=== PATIENT | male | born 1960 | race Caucasian/White ===

== ENCOUNTER 2017-09-08 10:30 | Emergency (ER) | payer BC, OTHER ==
[2017-09-08] MEDS ORDERED: Iopamidol 755 Mg/ML 75 ML Bottle IV ONE (12:55)
--- NOTE | 2017-09-08 15:14 | EDM.PDOC ---
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 felt shaky and dizzy and lightheaded several hours arriving at work which is unusual for him, he went to see company nurse and his BP and HR were inc'd per pt altho he could not tell me how high pt has a tremor of his L hand for several weeks which got worse today, however it did not interfere with his work BP 188/107 on arrival here with HR 82, BP gradually dec'd to 144/84 without meds , pt only slightly pain on arrival pt with visible gross tremor of his L hand and forearm that resolved with intentional action, subsequently resolved, no focal neuro findings there is ptosis on the L that is old on head CT radiologist Dr Oscar identified 3 areas of small infarcts: R internal capsule, L frontal parietal and L parasagittal. Dr Oscar thought that they might be evolving but had no comparison imaging local hospitalist Dr Oliveira requested that I speak with neurologist, Dr Moore reviewed head CT and said that he could not identify chronicity but pt dizziness was not vascular in the absence of vertigo, or ataxia, diplopia or dysphagia--none of which were present chest CTA for inc'd d-dimer was neg pt's father requested pt be transferred to [place] rather than be admitted locally for further stroke w/u d/w Dr Shepard [facility] hospitalist who accepted pt in admission pt resting comfortably now BP 188/107 on arrival, now 144/83 with no meds given - Related Data Allergies Allergy/AdvReac Type Severity Reaction Status Date / Time No Known Allergies Allergy Verified 01/18/13 04:02 Home Meds: Home Meds Celecoxib [CeleBREX] 200 mg PO DAILY 09/08/17 [History] metFORMIN [Glucophage] 500 mg PO BIDMEALS 09/08/17 [History] Past Medical History - Past Health History Medical/Surgical History: Denies Medical/Surgical History HEENT History: Reports: Other (See Below) Other HEENT History: lazy eye L eye Genitourinary History: Reports: None Musculoskeletal History: Reports: Arthritis, Fracture Other Musculoskeletal History: L foot fx Endocrine/Metabolic History: Reports: Diabetes, Type II, Obesity/BMI 30+ - Infectious Disease History Infectious Disease History: Reports: Chicken Pox - Past Surgical History Male Surgical History: Reports: Other (See Below) Other Male Surgeries/Procedures: 'surgery on penis' Musculoskeletal Surgical History: Reports: ORIF Other Musculoskeletal Surgeries/Procedures:: L foot surgery Social & Family History - Family History Family Medical History: Noncontributory - Tobacco Use Smoking Status *Q: Current Every Day Smoker Years of Tobacco use: 40 Packs/Tins Daily: 1 - Caffeine Use Caffeine Use: Reports: Soda - Recreational Drug Use Recreational Drug Use: No ED ROS GENERAL - Review of Systems Review Of Systems: See Below Constitutional: Reports: No Symptoms HEENT: Reports: No Symptoms Respiratory: Reports: No Symptoms Cardiovascular: Reports: No Symptoms Endocrine: Reports: No Symptoms GI/Abdominal: Reports: No Symptoms : Reports: No Symptoms Musculoskeletal: Reports: No Symptoms Skin: Reports: No Symptoms Neurological: Reports: Dizziness, Tremors. Denies: Headache, Syncope, Difficulty Walking, Weakness, Change in Speech, Gait Disturbance Psychiatric: Reports: No Symptoms Hematologic/Lymphatic: Reports: No Symptoms Immunologic: Reports: No Symptoms ED EXAM, NEURO - Physical Exam Exam: See Below Exam Limited By: Other (limited hx, pt poor historian, cognitively challenged) General Appearance: Alert, WD/WN, No Apparent Distress, Other (pleasant, cooperativew) Eye Exam: Bilateral Eye: Normal Inspection, PERRL, Other (ptosis on L) Ears: Normal External Exam, Hearing Grossly Normal Nose: Normal Inspection, Normal Mucosa, No Blood Throat/Mouth: Normal Inspection, Normal Lips, Normal Teeth, Normal Gums, Normal Oropharynx, Normal Voice, No Airway Compromise Head Exam: Atraumatic, Normocephalic Neck: Normal Inspection, Supple, Non-Tender, Full Range of Motion Respiratory/Chest: No Respiratory Distress, Lungs Clear, Normal Breath Sounds, No Accessory Muscle Use, Chest Non-Tender Cardiovascular: Regular Rate, Rhythm, No Edema, No Gallop, No Murmur, No Rub, Other (2/6 MALI at LSB) GI/Abdominal: Normal Bowel Sounds, Soft, Non-Tender, No Distention, No Mass Neurological: Alert, Normal Mood/Affect, Normal Dorsiflexion, CN II-XII Intact, Normal Gait, Normal Reflexes, No Motor/Sensory Deficits, Oriented x 3, Other ( DTRs 2+ at biceps and BR b/l, hand blue split trimmer 5/5, resting tremor at L hand/forearm) Back Exam: Normal Inspection, Full Range of Motion, NT Extremities: Normal Inspection, Normal Range of Motion, Non-Tender, Other (1+ edema to knees b/l, symmetric) Psychiatric: Normal Affect, Normal Mood Skin Exam: Warm, Dry, Intact, Normal Color, No Rash Course - Vital Signs Last Recorded V/S: Last Vital Signs Temp 36.4 C 09/08/17 10:30 Pulse 84 09/08/17 10:30 Resp 20 09/08/17 10:30 BP 165/100 H 09/08/17 10:30 Pulse Ox 94 L 09/08/17 10:30 Orthostatic Blood Pressure [ 170/111 Standing] Orthostatic Blood Pressure [ 152/100 Sitting] Orthostatic Blood Pressure [ 150/85 Supine] - Orders/Labs/Meds Orders: Active Orders 24 hr Category Date Time Status Orthostatic Vital Signs [RC] ASDIRECTED Care 09/08/17 10:59 Active Chest 2V [CR] Stat Exams 09/08/17 10:59 Taken Chest w Cont [CT] Stat Exams 09/08/17 12:06 Taken Head wo Cont [CT] Stat Exams 09/08/17 12:24 Taken URINALYSIS W/MICROSCOPIC [UA W/MICROSCOPIC] [URIN] Stat Lab 09/08/17 11:30 Ordered EKG 12 Lead [EK] Routine Ther 09/08/17 10:48 Ordered Labs: Laboratory Tests 09/08/17 09/08/17 09/08/17 Range/Units 10:39 10:41 10:41 WBC 8.9 (4.5-12.0) X10-3/uL RBC 5.12 (4.30-5.75) x10(6)uL Hgb 16.4 H (11.5-15.5) g/dL Hct 50.1 (30.0-51.3) % MCV 97.9 H (80-96) fL MCH 32.0 (27.7-33.6) pg MCHC 32.7 (32.2-35.4) g/dL RDW 12.6 (11.5-15.5) % Plt Count 128 (125-369) X10(3)uL MPV 9.7 (7.4-10.4) fL Neut % (Auto) 79.3 (46-82) % Lymph % (Auto) 12.1 L (13-37) % Menard % (Auto) 6.2 (4-12) % Eos % (Auto) 1 (1.0-5.0) % Baso % (Auto) 1 (0-2) % Neut # (Auto) 7.0 (1.6-8.3) # Lymph # (Auto) 1.1 (0.6-5.0) # Menard # (Auto) 0.6 (0.0-1.3) # Eos # (Auto) 0.1 (0.0-0.8) # Baso # (Auto) 0.1 (0.0-0.2) # D-Dimer, Quantitative 0.84 H (0.0-0.59) mg/LFEU Sodium (135-145) mmol/L Potassium (3.5-5.3) mmol/L Chloride (100-110) mmol/L Carbon Dioxide (21-32) mmol/L BUN (7-18) mg/dL Creatinine (0.70-1.30) mg/dL Est Cr Clr Drug Dosing Estimated GFR (MDRD) (>60) BUN/Creatinine Ratio (9-20) Glucose (80-116) mg/dL POC Glucose 138 H (80-116) mg/dL Calcium (8.6-10.2) mg/dL Total Bilirubin (0.1-1.3) mg/dL AST (5-25) IU/L ALT (12-36) U/L Alkaline Phosphatase (56-112) IU/L Troponin I (<0.017-0.056) ng/mL C-Reactive Protein (0.5-0.9) mg/dL NT-Pro-B Natriuret Pep (<=125) pg/mL Total Protein (6.0-8.0) g/dL Albumin (3.5-5.2) g/dL Globulin g/dL Albumin/Globulin Ratio Urine Color (YELLOW) Urine Appearance (CLEAR) Urine pH (5.0-6.5) Ur Specific [place] (1.010-1.025) Urine Protein (NEGATIVE) mg/dL Urine Glucose (UA) (NEGATIVE) mg/dL Urine Ketones (NEGATIVE) mg/dL Urine Occult Blood (NEGATIVE) Urine Nitrite (NEGATIVE) Urine Bilirubin (NEGATIVE) Urine Urobilinogen (NEGATIVE) mg/dL Ur Leukocyte Esterase (NEGATIVE) Urine RBC (0) Urine WBC (0) Ur Squamous Epith Cells (NS,R,O) Urine Bacteria (NS) 09/08/17 09/08/17 09/08/17 Range/Units 10:41 10:41 11:30 WBC (4.5-12.0) X10-3/uL RBC (4.30-5.75) x10(6)uL Hgb (11.5-15.5) g/dL Hct (30.0-51.3) % MCV (80-96) fL MCH (27.7-33.6) pg MCHC (32.2-35.4) g/dL RDW (11.5-15.5) % Plt Count (125-369) X10(3)uL MPV (7.4-10.4) fL Neut % (Auto) (46-82) % Lymph % (Auto) (13-37) % Menard % (Auto) (4-12) % Eos % (Auto) (1.0-5.0) % Baso % (Auto) (0-2) % Neut # (Auto) (1.6-8.3) # Lymph # (Auto) (0.6-5.0) # Menard # (Auto) (0.0-1.3) # Eos # (Auto) (0.0-0.8) # Baso # (Auto) (0.0-0.2) # D-Dimer, Quantitative (0.0-0.59) mg/LFEU Sodium 139 (135-145) mmol/L Potassium 3.9 (3.5-5.3) mmol/L Chloride 104 (100-110) mmol/L Carbon Dioxide 24 (21-32) mmol/L BUN 18 (7-18) mg/dL Creatinine 0.8 (0.70-1.30) mg/dL Est Cr Clr Drug Dosing TNP Estimated GFR (MDRD) > 60 (>60) BUN/Creatinine Ratio 22.5 H (9-20) Glucose 159 H (80-116) mg/dL POC Glucose (80-116) mg/dL Calcium 8.6 (8.6-10.2) mg/dL Total Bilirubin 0.4 (0.1-1.3) mg/dL AST 15 (5-25) IU/L ALT 31 (12-36) U/L Alkaline Phosphatase 70 (56-112) IU/L Troponin I < 0.017 L (<0.017-0.056) ng/mL C-Reactive Protein < 0.2 L (0.5-0.9) mg/dL NT-Pro-B Natriuret Pep 44 (<=125) pg/mL Total Protein 7.0 (6.0-8.0) g/dL Albumin 4.1 (3.5-5.2) g/dL Globulin 2.9 g/dL Albumin/Globulin Ratio 1.4 Urine Color Yellow (YELLOW) Urine Appearance Clear (CLEAR) Urine pH 5.0 (5.0-6.5) Ur Specific [place] 1.020 (1.010-1.025) Urine Protein Negative (NEGATIVE) mg/dL Urine Glucose (UA) 250 H (NEGATIVE) mg/dL Urine Ketones Negative (NEGATIVE) mg/dL Urine Occult Blood Large H (NEGATIVE) Urine Nitrite Negative (NEGATIVE) Urine Bilirubin Negative (NEGATIVE) Urine Urobilinogen Normal (NEGATIVE) mg/dL Ur Leukocyte Esterase Negative (NEGATIVE) Urine RBC 0-5 (0) Urine WBC 5-10 (0) Ur Squamous Epith Cells Moderate H (NS,R,O) Urine Bacteria Few H (NS) Meds: Medications Discontinued Medications Generic Name Dose Route Start Last Admin Trade Name Freq PRN Reason Stop Dose Admin Iopamidol 75 ml 09/08/17 12:55 09/08/17 13:19 Isovue-370 (76%) IV 09/08/17 12:56 75 ml ASDIRECTED ONE Administration Departure - Departure Time of Disposition: 16:32 Disposition: DC/Tfer to Acute Hospital 02 Condition: Good Clinical Impression: Dizziness, Elevated blood pressure reading, Resting tremor, Current smoker, Diabetes mellitus, Elevated d-dimer, CVA (cerebral vascular accident), Abnormal head CT, Dependent edema - Discharge Information - My Orders Last 24 Hours: My Active Orders 09/08/17 10:48 EKG 12 Lead [EK] Routine 09/08/17 10:59 Orthostatic Vital Signs [RC] ASDIRECTED Chest 2V [CR] Stat 09/08/17 11:30 URINALYSIS W/MICROSCOPIC [UA W/MICROSCOPIC] [URIN] Stat 09/08/17 12:06 Chest w Cont [CT] Stat 09/08/17 12:24 Head wo Cont [CT] Stat - Assessment/Plan Last 24 Hours: My Active Orders 09/08/17 10:48 EKG 12 Lead [EK] Routine 09/08/17 10:59 Orthostatic Vital Signs [RC] ASDIRECTED Chest 2V [CR] Stat 09/08/17 11:30 URINALYSIS W/MICROSCOPIC [UA W/MICROSCOPIC] [URIN] Stat 09/08/17 12:06 Chest w Cont [CT] Stat 09/08/17 12:24 Head wo Cont [CT] Stat
[2017-09-08] MEDS ORDERED: Aspirin 81 MG Tab.Chew PO ONE (16:27)
[2017-09-08 20:38] VITALS: BP 133/81
--- NOTE | 2017-09-09 10:18 | CR ---
INDICATION: Short of breath, shaky. CHEST: PA and lateral views of the chest were obtained 09/08/2017 - no comparisons. Overlying EKG leads are noted. The heart appears slightly enlarged. The aorta is tortuous with calcification in the arch. Bridging hyperostotic changes are noted in the mid thoracic spine. Findings compatible with COPD are noted. No consolidating pneumonia or effusion was identified. Somewhat heavy markings interstitially likely are fibrotic in nature. Other etiology, such as pneumonia, cannot be entirely excluded. IMPRESSION: 1. No definite acute process. 2. Somewhat heavy interstitial markings, suggesting pulmonary fibrosis of mild degree. 3. COPD. 4. ASHD. 5. DJD spine. MTDD
--- NOTE | 2017-09-09 13:42 | CT ---
INDICATION: Short of breath, increased D-dimer, question PE. CT ANGIOGRAPHY OF THE CHEST WITH CONTRAST FOR PULMONARY ARTERIES: Spiral 1.25 mm axial images were obtained through the chest with 75 mL Isovue 370 at 3.5 mL/ second with sagittal and coronal reconstructions, 09/08/2017 - no comparisons were available. Total exam DLP = 967.81 mGy-cm. There is minimal patchy infiltration in the left upper lobe seen on axial images #33 through #64. This is seen anteriorly and most likely represents minimal patchy pneumonia. In the right upper lobe in a similar location, there are some very minimal heavy markings, which could represent a similar process but to a much lesser extent. Both of these areas could be at least partially fibrotic in nature. No gross consolidating pneumonia or effusions could be identified. No nodular masses were identified, although a subpleural density of small size is noted on axial image #135 in the middle lobe laterally. It likely is fibrotic in nature and may represent a lymph node. The heart was not enlarged. No pericardial effusion was seen. Minimal coronary artery calcification is seen. Minimal mediastinal lymphadenopathy is noted and is nonspecific. IMPRESSION: 1. Findings suggest minimal patchy pneumonia and/or fibrosis in the left upper lobe and perhaps very minimally in the right upper lobe scattered in multiple segments of the upper portion of the right upper lobe. 2. No evidence of PE. 3. Very minimal ASD/ASHD. 4. Bridging hyperostotic changes anteriorly lower thoracic spine. Report was called to Dr. Sevilla at 1407 hours on 09/08/2017. [facility]
--- NOTE | 2017-09-09 13:53 | CT ---
INDICATION: Dizzy, tremor, rule out CVA. CT HEAD WITHOUT CONTRAST: Serial contiguous 2.5 and 5 mm sections were obtained through the brain without contrast. No comparisons were available. Total exam DLP = 950.31 mGy-cm. No shift of midline structures or ventricular abnormalities were identified. There is some minimal calcification noted in the area of the right internal carotid artery. There is a moderate sized area of decreased density in the anterior limb of the right internal capsule, which could represent a lacunar infarct, possibly evolving. There is a small low density area parasagittal in the frontoparietal area on the left, which could represent a tiny cortical infarct. This is seen on axial image #33. No other abnormal areas of density were suggested - no bleeding site or hematoma was seen. No cranial abnormality was identified. The mastoid air cells, as visualized, appeared well-aerated. A small retention cyst was noted posteriorly in the right maxillary antrum. Minimal thickening of the lining of an ethmoidal air cell on the left is noted. Paranasal sinuses were otherwise unremarkable. IMPRESSION: 1. Findings suggest a tiny cortical infarct on the left in the parasagittal area, frontoparietal white matter, as well as a possible lacunar infarct in the anterior limb of the right internal capsule. These abnormalities may represent evolving areas of ischemia. An additional subcortical infarct is noted in the left frontoparietal white matter just inferior or caudal to the cortical finding and somewhat anteriorly. These could all represent areas of evolving ischemia. No old studies were available for comparison. 2. Minimal paranasal sinus abnormalities. Report was called to Dr. Sevilla at 1407 hours on 09/08/2017. [facility]
== END 2017-09-08 17:05 ==
LOC: FB.ED 10:30 → UNDOADMOB 14:23 → FB.MS 14:23 → FB.ED 17:05
DX: R42 Dizziness and giddiness (principal); R03.0 Elevated blood-pressure reading, without diagnosis of hypertension; E11.9 Type 2 diabetes mellitus without complications; F17.210 Nicotine dependence, cigarettes, uncomplicated; R79.1 Abnormal coagulation profile; R60.9 Edema, unspecified; Z86.73 Personal history of transient ischemic attack (TIA), and cerebral infarction without residual deficits; Z79.84 Long term (current) use of oral hypoglycemic drugs
CPT/HCPCS: 36415; 70450; 71046; 71260; 80053; 81001; 82962; 83880; 84484; 85025; 85379; 86140; 93005; 99284; Q9967

== ENCOUNTER 2018-07-21 11:53 | Inpatient (IN) | payer BC ==
[2018-07-21] MEDS: Sodium Chloride 0.9% 10 ML Syringe FLUSH PRN ×4 (13:20→23:00)
[2018-07-21] MEDS: Nafcillin 2 GM in Sodium Chloride 0.9% 100 ML IV SCH ×3 (13:33→22:04)
[2018-07-21] MEDS: Enoxaparin 40 MG/0.4 ML Syringe SUBCUT SCH (15:09)
[2018-07-21] MEDS ORDERED: Clindamycin Phosphate 900 MG in Sodium Chloride 0.9% 100 ML IV SCH (18:30)
[2018-07-21] MEDS: Clindamycin in 0.9 % Sod Chlor 900 MG/50 ML BAG IV SCH (19:34)
[2018-07-22] MEDS: Nafcillin 2 GM in Sodium Chloride 0.9% 100 ML IV SCH ×6 (01:44→22:22)
[2018-07-22] MEDS: Sodium Chloride 0.9% 10 ML Syringe FLUSH PRN ×7 (02:42→20:30)
[2018-07-22] MEDS: Clindamycin in 0.9 % Sod Chlor 900 MG/50 ML BAG IV SCH ×4 (04:10→20:03)
[2018-07-22 08:20] LABS: HEMOGLOBIN A1C 7.2 % (4.5-6.2)
[2018-07-22] MEDS: Hydrochlorothiazide/Lisinopril 12.5-20 MG Tab PO SCH (08:40)
[2018-07-22] MEDS: metFORMIN 500 MG Tab PO SCH ×2 (08:40→18:05)
--- NOTE | 2018-07-22 11:19 | US ---
INDICATION: Swollen left calf, question DVT. DUPLEX ULTRASOUND, LEFT LOWER EXTREMITY VEINS: Utilizing 2-D real time, duplex Doppler spectral analysis and color flow imaging, examination of the left lower extremity veins was obtained. Examination was difficult due to patient body habitus and the degree of edema present. The greater saphenous and proximal deep femoral vein were not visualized, nor was the peroneal vein. The common femoral vein and proximal, mid, and distal femoral vein, as well as the popliteal vein and posterior tibial veins were visualized and appear to be patent with color flow and compressibility. The patient was not able to cooperate adequately to assess the competence of the valves, however. IMPRESSION: No evidence of deep venous thrombosis as visualized with difficulty in visualizing multiple veins, as noted above. Report was called to Dr. Driscoll at 1040 hours on 07/22/18. [facility]
--- NOTE | 2018-07-22 12:44 | PN ---
DATE SEEN: 07/22/2018 SUBJECTIVE: John Bledsoe is a 57-year-old male admitted with complicated cellulitis, left lower extremity. Pathogen not available, nothing to culture. Had a good night without pain. Sugars were noted, elevated, metformin restarted. Blood pressure labile, medications not consistently in the past. Reviewed laboratory studies, intervention, and care. Hemoglobin A1c returned 7.3. Lipids were reasonable; 174 cholesterol, 114 triglycerides, 117 LDL, HDL 35. OBJECTIVE: VITAL SIGNS: 36.7, 70, 150/96. Pulse 70. GENERAL: In good spirits. NECK: Benign. Thyroid small. CHEST: Clear. HEART: Regular. ABDOMEN: Benign. EXTREMITIES: Lower extremity findings, left versus right similar. ASSESSMENT: Complicated cellulitis, left lower extremity. PLAN: Surgical consultation for debridement, intervention. Vascular study, i.e., ultrasound, still not available for review. Dr. Oscar will inform me. Continue management, surgical consultation planned. /[id number] DENNISE/CRIS
--- NOTE | 2018-07-22 12:45 | PCM.CONS ---
H&P History of Present Illness - General Date of Service: 07/22/18 Admit Problem/Dx: Admission Diagnosis/Problem Admission Diagnosis/Problem Cellulitis Source of Information: Patient, Old Records (not available ) - History of Present Illness Initial Comments - Free Text/Narative: Pt admitted to hospital with cellulitis and swelling to e. has a hx of venous stasis disease. has responded to antibiotics given overnight. No new complaints - Related Data Allergies/Adverse Reactions: Allergies Allergy/AdvReac Type Severity Reaction Status Date / Time No Known Allergies Allergy Verified 01/18/13 04:02 Home Medications: Home Meds metFORMIN [Glucophage] 1,000 mg PO WITHDINNER 09/08/17 [History] Aspirin [Ecotrin] 81 mg PO BEDTIME 07/21/18 [History] Lisinopril/Hydrochlorothiazide [Lisinopril-Hctz 20-12.5 mg Tab] 1 each PO DAILY 07/21/18 [History] atorvaSTATin [Lipitor] 20 mg PO BEDTIME 07/21/18 [History] Past Medical History - Past Health History Medical/Surgical History: Denies Medical/Surgical History HEENT History: Reports: Other (See Below) Other HEENT History: lazy eye L eye Respiratory History: Reports: SOB Genitourinary History: Reports: Other (See Below) Other Genitourinary History: repair of circumcision as an adult around the age of 40. Musculoskeletal History: Reports: Arthritis, Fracture Other Musculoskeletal History: L foot fx Psychiatric History: Reports: Learning Disability Endocrine/Metabolic History: Reports: Diabetes, Type II, Obesity/BMI 30+ Dermatologic History: Reports: Cellulitis - Infectious Disease History Infectious Disease History: Reports: Chicken Pox - Past Surgical History Respiratory Surgical History: Reports: None Male Surgical History: Reports: Other (See Below) Other Male Surgeries/Procedures: 'surgery on penis' Social & Family History - Family History Family Medical History: Noncontributory - Tobacco Use Smoking Status *Q: Current Every Day Smoker Years of Tobacco use: 45 Packs/Tins Daily: 0.5 Used Tobacco, but Quit: No Month/Year Tobacco Last Used: 07/21/18 Second Hand Smoke Exposure: No - Caffeine Use Caffeine Use: Reports: Soda - Alcohol Use Date of Last Drink: 07/08/18 Time of Last Drink: 18:00 - Recreational Drug Use Recreational Drug Use: No H&P Review of Systems - Review of Systems: Review Of Systems: See Below Skin: Reports: Change in Color Exam - Exam Exam: See Below - Vital Signs Vital Signs: Last Vital Signs Temp 98.0 F 07/22/18 08:00 Pulse 67 07/22/18 04:00 Resp 18 07/22/18 08:00 BP 150/96 H 07/22/18 08:40 Pulse Ox 94 L 07/22/18 08:00 Weight: 163.974 kg - Exam Extremities: Other (lle has some venous stasis changes with some thicken skin on lateral ankel and dorum of toes. ) Peripheral Pulses: 1+: Dorsalis Pedis (L) Skin: Warm, Dry, Intact - Patient Data Lab Results Last 24 hrs: Laboratory Results - last 24 hr 07/21/18 07/21/18 07/21/18 Range/Units 12:48 12:50 12:50 WBC 5.4 (4.5-12.0) X10-3/uL RBC 4.80 (4.30-5.75) x10(6)uL Hgb 15.6 (13.5-17.8) g/dL Hct 46.6 (30.0-51.3) % MCV 97.1 H (80-96) fL MCH 32.6 (27.7-33.6) pg MCHC 33.6 (32.2-35.4) g/dL RDW 13.1 (11.5-15.5) % Plt Count 164 (125-369) X10(3)uL MPV 9.7 (7.4-10.4) fL Neut % (Auto) 58.2 (46-82) % Lymph % (Auto) 23.7 (13-37) % [place] % (Auto) 12.7 H (4-12) % Eos % (Auto) 4 (1.0-5.0) % Baso % (Auto) 2 (0-2) % Neut # (Auto) 3.1 (1.6-8.3) # Lymph # (Auto) 1.3 (0.6-5.0) # [place] # (Auto) 0.7 (0.0-1.3) # Eos # (Auto) 0.2 (0.0-0.8) # Baso # (Auto) 0.1 (0.0-0.2) # Sodium 139 (135-145) mmol/L Potassium 4.0 (3.5-5.3) mmol/L Chloride 104 (100-110) mmol/L Carbon Dioxide 28 (21-32) mmol/L BUN 12 (7-18) mg/dL Creatinine 0.8 (0.70-1.30) mg/dL Est Cr Clr Drug Dosing 108.51 mL/min Estimated GFR (MDRD) > 60 (>60) BUN/Creatinine Ratio 15.0 (9-20) Glucose 228 H (80-116) mg/dL POC Glucose (80-116) mg/dL Hemoglobin A1c (4.5-6.2) % Calcium 8.4 L (8.6-10.2) mg/dL Total Bilirubin 0.2 (0.1-1.3) mg/dL AST 14 (5-25) IU/L ALT 31 (12-36) U/L Alkaline Phosphatase 82 (56-112) IU/L NT-Pro-B Natriuret Pep (<=125) pg/mL Total Protein 6.9 (6.0-8.0) g/dL Albumin 3.6 (3.5-5.2) g/dL Globulin 3.3 g/dL Albumin/Globulin Ratio 1.1 Triglycerides (15-150) mg/dL Cholesterol (50-200) mg/dL LDL Cholesterol Direct (60-130) mg/dL HDL Cholesterol (40-75) mg/dL Cholesterol/HDL Ratio (0-5) Urine Color Yellow (YELLOW) Urine Appearance Clear (CLEAR) Urine pH 6.0 (5.0-6.5) Ur Specific [place] 1.010 (1.010-1.025) Urine Protein Negative (NEGATIVE) mg/dL Urine Glucose (UA) >1000 H (NORMAL) mg/dL Urine Ketones Negative (NEGATIVE) mg/dL Urine Occult Blood Moderate H (NEGATIVE) Urine Nitrite Negative (NEGATIVE) Urine Bilirubin Negative (NEGATIVE) Urine Urobilinogen Normal (NEGATIVE) mg/dL Ur Leukocyte Esterase Negative (NEGATIVE) Urine RBC 0-5 (0-5) Urine WBC 0-5 (0-5) Ur Squamous Epith Cells Few H (NS,R,O) Urine Bacteria Rare H (NS) 07/21/18 07/21/18 07/22/18 Range/Units 12:50 17:09 07:46 WBC (4.5-12.0) X10-3/uL RBC (4.30-5.75) x10(6)uL Hgb (13.5-17.8) g/dL Hct (30.0-51.3) % MCV (80-96) fL MCH (27.7-33.6) pg MCHC (32.2-35.4) g/dL RDW (11.5-15.5) % Plt Count (125-369) X10(3)uL MPV (7.4-10.4) fL Neut % (Auto) (46-82) % Lymph % (Auto) (13-37) % [place] % (Auto) (4-12) % Eos % (Auto) (1.0-5.0) % Baso % (Auto) (0-2) % Neut # (Auto) (1.6-8.3) # Lymph # (Auto) (0.6-5.0) # [place] # (Auto) (0.0-1.3) # Eos # (Auto) (0.0-0.8) # Baso # (Auto) (0.0-0.2) # Sodium (135-145) mmol/L Potassium (3.5-5.3) mmol/L Chloride (100-110) mmol/L Carbon Dioxide (21-32) mmol/L BUN (7-18) mg/dL Creatinine (0.70-1.30) mg/dL Est Cr Clr Drug Dosing mL/min Estimated GFR (MDRD) (>60) BUN/Creatinine Ratio (9-20) Glucose (80-116) mg/dL POC Glucose 92 150 H (80-116) mg/dL Hemoglobin A1c (4.5-6.2) % Calcium (8.6-10.2) mg/dL Total Bilirubin (0.1-1.3) mg/dL AST (5-25) IU/L ALT (12-36) U/L Alkaline Phosphatase (56-112) IU/L NT-Pro-B Natriuret Pep 59 (<=125) pg/mL Total Protein (6.0-8.0) g/dL Albumin (3.5-5.2) g/dL Globulin g/dL Albumin/Globulin Ratio Triglycerides (15-150) mg/dL Cholesterol (50-200) mg/dL LDL Cholesterol Direct (60-130) mg/dL HDL Cholesterol (40-75) mg/dL Cholesterol/HDL Ratio (0-5) Urine Color (YELLOW) Urine Appearance (CLEAR) Urine pH (5.0-6.5) Ur Specific [place] (1.010-1.025) Urine Protein (NEGATIVE) mg/dL Urine Glucose (UA) (NORMAL) mg/dL Urine Ketones (NEGATIVE) mg/dL Urine Occult Blood (NEGATIVE) Urine Nitrite (NEGATIVE) Urine Bilirubin (NEGATIVE) Urine Urobilinogen (NEGATIVE) mg/dL Ur Leukocyte Esterase (NEGATIVE) Urine RBC (0-5) Urine WBC (0-5) Ur Squamous Epith Cells (NS,R,O) Urine Bacteria (NS) 07/22/18 07/22/18 Range/Units 08:00 08:00 WBC (4.5-12.0) X10-3/uL RBC (4.30-5.75) x10(6)uL Hgb (13.5-17.8) g/dL Hct (30.0-51.3) % MCV (80-96) fL MCH (27.7-33.6) pg MCHC (32.2-35.4) g/dL RDW (11.5-15.5) % Plt Count (125-369) X10(3)uL MPV (7.4-10.4) fL Neut % (Auto) (46-82) % Lymph % (Auto) (13-37) % [place] % (Auto) (4-12) % Eos % (Auto) (1.0-5.0) % Baso % (Auto) (0-2) % Neut # (Auto) (1.6-8.3) # Lymph # (Auto) (0.6-5.0) # [place] # (Auto) (0.0-1.3) # Eos # (Auto) (0.0-0.8) # Baso # (Auto) (0.0-0.2) # Sodium (135-145) mmol/L Potassium (3.5-5.3) mmol/L Chloride (100-110) mmol/L Carbon Dioxide (21-32) mmol/L BUN (7-18) mg/dL Creatinine (0.70-1.30) mg/dL Est Cr Clr Drug Dosing mL/min Estimated GFR (MDRD) (>60) BUN/Creatinine Ratio (9-20) Glucose (80-116) mg/dL POC Glucose (80-116) mg/dL Hemoglobin A1c 7.2 H (4.5-6.2) % Calcium (8.6-10.2) mg/dL Total Bilirubin (0.1-1.3) mg/dL AST (5-25) IU/L ALT (12-36) U/L Alkaline Phosphatase (56-112) IU/L NT-Pro-B Natriuret Pep (<=125) pg/mL Total Protein (6.0-8.0) g/dL Albumin (3.5-5.2) g/dL Globulin g/dL Albumin/Globulin Ratio Triglycerides 114 (15-150) mg/dL Cholesterol 174 (50-200) mg/dL LDL Cholesterol Direct 117 (60-130) mg/dL HDL Cholesterol 35 L (40-75) mg/dL Cholesterol/HDL Ratio 5.0 (0-5) Urine Color (YELLOW) Urine Appearance (CLEAR) Urine pH (5.0-6.5) Ur Specific [place] (1.010-1.025) Urine Protein (NEGATIVE) mg/dL Urine Glucose (UA) (NORMAL) mg/dL Urine Ketones (NEGATIVE) mg/dL Urine Occult Blood (NEGATIVE) Urine Nitrite (NEGATIVE) Urine Bilirubin (NEGATIVE) Urine Urobilinogen (NEGATIVE) mg/dL Ur Leukocyte Esterase (NEGATIVE) Urine RBC (0-5) Urine WBC (0-5) Ur Squamous Epith Cells (NS,R,O) Urine Bacteria (NS) Result Diagrams: 07/21/18 12:50 07/21/18 12:50 Consult PN Assessment/Plan Procedures: Procedures ASSAY OF NATRIURETIC PEPTIDE (09/08/17) ASSAY OF TROPONIN QUANT (09/08/17) C-REACTIVE PROTEIN (09/08/17) COMPLETE CBC W/AUTO DIFF WBC (09/08/17) COMPREHEN METABOLIC PANEL (09/08/17) CT HEAD/BRAIN W/O DYE (09/08/17) CT THORAX W/DYE (09/08/17) ELECTROCARDIOGRAM TRACING (09/08/17) EMERGENCY DEPT VISIT (09/08/17) EMERGENCY DEPT VISIT (09/08/17) EMERGENCY DEPT VISIT (11/22/14) EMERGENCY DEPT VISIT (11/22/14) EMERGENCY DEPT VISIT (01/18/13) EXTREMITY STUDY (11/22/14) FIBRIN DEGRADATION QUANT (09/08/17) GLUCOSE BLOOD TEST (09/08/17) METABOLIC PANEL TOTAL CA (11/22/14) ROUTINE VENIPUNCTURE (09/08/17) URINALYSIS AUTO W/SCOPE (09/08/17) X-RAY EXAM CHEST 2 VIEWS (09/08/17) (1) Venous hypertension of left lower extremity SNOMED Code(s): 544793908 Code(s): I87.302 - CHRONIC VENOUS HYPERTENSION W/O COMP OF L LOW EXTREM Current Visit: Yes Problem List Initiated/Reviewed/Updated: Yes My Orders Last 24 Hours: My Active Orders 07/22/18 12:37 Isidoro Bandage [RC] ROUTINE Plan: would continue to treat cellulitis. would apply isidoro wrap to lle. at this time would NOT debride anything as it would not heal. would apply lotion the thickened skin
--- NOTE | 2018-07-22 14:13 | HP ---
ADMISSION DATE: 07/21/2018 REASON FOR VISIT: Complicated left lower leg redness, swelling, and discomfort. HISTORY OF PRESENT ILLNESS: Jose Bledsoe is a 57-year-old, male, a resident of [place], [place], who was seen by Dr. Montero at [facility]. Consult was obtained for admission for progressive increasing redness and discomfort. Longstanding history of venous insufficiency. Last several weeks, red, tender, sore, increasingly problematic. Pain 3/10. He has history of diabetes mellitus with reasonable control by report. PRESENT MEDICATIONS: Include: 1. Metformin 1000 mg once daily. 2. Aspirin 81 mg daily. 3. Atorvastatin 20 mg one daily. 4. Lisinopril/HCTZ 20/12.5 one daily. ALLERGIES: No known medication, environmental, or latex allergies. PAST MEDICAL HISTORY: Significant for previous remote vasectomy. No other operative procedures, hospitalizations, unusual childhood diseases, major injuries, or fractures. Present medical treatments include hypertension, hyperlipidemia, and diabetes mellitus. SOCIAL HISTORY: Works at [employer]. . No children. A 1/2 pack per day smoker, but 2 packs in the past. Minimal alcohol consumption. No illicit drug use. FAMILY HISTORY: Noncontributory. REVIEW OF SYSTEMS: CONSTITUTIONAL: Feeling generally okay. EYES: Sees well. Little bit of droopy left eye. EARS: Some difficulty in crowds with hearing. OROPHARYNX: Intact dentition. No loose teeth. CARDIOVASCULAR: Denies chest pain or respiratory difficulty. Some exercise intolerance. GASTROINTESTINAL: Regular predictable stools. No blood in stools. GENITOURINARY: Good voiding pattern. No blood in urine. SKIN: Please see HPI. NEUROLOGIC: Denies headache, blurred vision, weakness, or tremors. PSYCHOLOGICAL: Mood stable. ENDOCRINE: No excessive thirst or urination. PHYSICAL EXAMINATION: VITAL SIGNS: 36.8, 73, 162/108, 18, 97%. GENERAL: Large, heavily bearded, disheveled gentleman, appears older than stated age. HEENT: Funduscopic benign. Little lid ptosis on the left. Bright tympanic membranes. Clear nasal discharge. Mouth and oropharynx are clear. Poor dentition. Tongue midline. Good gag reflex. NECK: Benign. Thyroid small. No adenopathy. CHEST: Clear in all lung garcia. No adventitious sounds. HEART: No ectopy or murmur. BREASTS: Normal male breasts. ABDOMEN: Benign, rotund obese. No hepatosplenomegaly. GENITOURINARY: Normal male genitalia. Hernia is absent. RECTAL: Exam deferred. EXTREMITIES: Reveal chronic venous stasis changes, both lower extremities, with hemosiderin venous insufficiency, involving markedly erythematous red area, which is in the medial area from upper third of the medial lower leg extending to the medial and lateral aspect of the foot. Some trophic skin changes noted. Peripheral pulse palpable on the right; on the left, not palpable. Sensation was normal. LABORATORY STUDIES: White count 5,400, hemoglobin 15.6, normal electrolytes, glucose 228, calcium 8.4, and kidney function is fine. Urinalysis, marked glucosuria. Ultrasound pending. ASSESSMENT: Complicated cellulitis, left lower extremity; venous insufficiency; diabetes mellitus; suspect reasonable arterial flow, deep venous thrombosis to be excluded. PLAN: Nafcillin and clindamycin intervention and care. Surgical consultation planned. /[id number] /CRIS
[2018-07-22] MEDS: Enoxaparin 40 MG/0.4 ML Syringe SUBCUT SCH (14:17)
[2018-07-22] MEDS: atorvaSTATin 20 MG Tab PO SCH (22:23)
[2018-07-22] MEDS: Aspirin 81 MG Tab.EC PO SCH (22:23)
[2018-07-23] MEDS: Nafcillin 2 GM in Sodium Chloride 0.9% 100 ML IV SCH ×6 (02:17→22:07)
[2018-07-23] MEDS: Clindamycin in 0.9 % Sod Chlor 900 MG/50 ML BAG IV SCH ×3 (04:25→20:50)
[2018-07-23] MEDS: Hydrochlorothiazide/Lisinopril 12.5-20 MG Tab PO SCH (08:21)
[2018-07-23] MEDS: metFORMIN 500 MG Tab PO SCH ×2 (08:21→18:18)
--- NOTE | 2018-07-23 11:12 | PN ---
DATE SEEN: 07/23/2018 SUBJECTIVE: Jose Bledsoe is a 57-year-old male, admitted with cellulitis of left lower extremity. Appears to be much improved. Consultation by Dr. Christy on board. Pain was never a complicating factor. LABORATORY STUDIES: Glucoses; 136, 141, and 146. Hemoglobin A1c 7.2. Lipids as noted. OBJECTIVE: VITAL SIGNS: 36.4, 80, 135/86, 18, and 94% on room air. GENERAL: Appears comfortable. Markedly obese. LUNGS: Chest clear in all lung garcia. HEART: No ectopy or murmur. ABDOMEN: Rotund. MUSCULOSKELETAL: Marked area of redness, left lower extremity, appears to be pale by observation, less warm to touch. Suspect improving infection. PLAN: IV access an issue, we will establish by tomorrow, duration of care and intervention. May be shorter than expected. /[id number] DENNISE/CRIS
[2018-07-23] MEDS: Sodium Chloride 0.9% 10 ML Syringe FLUSH PRN ×3 (12:50→20:51)
[2018-07-23] MEDS: Enoxaparin 40 MG/0.4 ML Syringe SUBCUT SCH (15:47)
[2018-07-23] MEDS: Aspirin 81 MG Tab.EC PO SCH (20:34)
[2018-07-23] MEDS: atorvaSTATin 20 MG Tab PO SCH (20:36)
[2018-07-24] MEDS: Nafcillin 2 GM in Sodium Chloride 0.9% 100 ML IV SCH ×3 (02:01→10:38)
[2018-07-24] MEDS: Sodium Chloride 0.9% 10 ML Syringe FLUSH PRN ×2 (02:02→08:46)
[2018-07-24] MEDS: Clindamycin in 0.9 % Sod Chlor 900 MG/50 ML BAG IV SCH ×2 (04:07→11:51)
[2018-07-24] MEDS: metFORMIN 500 MG Tab PO SCH (08:45)
[2018-07-24] MEDS: Hydrochlorothiazide/Lisinopril 12.5-20 MG Tab PO SCH (08:45)
[2018-07-24 08:48] VITALS: BP 140/77
--- NOTE | 2018-07-24 09:23 | PCM.PN ---
- General Info Date of Service: 07/24/18 Subjective Update: Has no new complaints Functional Status: Reports: Pain Controlled - Review of Systems Pulmonary: Reports: No Symptoms Cardiovascular: Reports: No Symptoms - Patient Data Vitals - Most Recent: Last Vital Signs Temp 98 F 07/24/18 04:39 Pulse 72 07/24/18 04:39 Resp 18 07/24/18 04:39 BP 140/77 07/24/18 08:45 Pulse Ox 96 07/24/18 04:39 Weight - Most Recent: 163.974 kg I&O - Last 24 Hours: Intake & Output 07/23/18 07/24/18 07/24/18 22:59 06:59 14:59 Intake Total 150 250 Balance 150 250 Lab Results Last 24 Hours: Laboratory Results - last 24 hr 07/23/18 07/23/18 07/24/18 Range/Units 11:25 16:17 06:26 POC Glucose 155 H 150 H 141 H (80-116) mg/dL Lauro Results Last 24 Hours: Microbiology 07/21/18 12:55 Aerobic Blood Culture - Preliminary Blood NO GROWTH AFTER 2 DAYS Anaerobic Blood Culture - Preliminary NO GROWTH AFTER 2 DAYS 07/21/18 12:50 Aerobic Blood Culture - Preliminary Blood NO GROWTH AFTER 2 DAYS Anaerobic Blood Culture - Preliminary NO GROWTH AFTER 2 DAYS Med Orders - Current: Current Medications Aspirin (Halfprin) 81 mg PO BEDTIME [facility] Last Admin: 07/23/18 20:34 Dose: 81 mg Atorvastatin Calcium (Lipitor) 20 mg PO BEDTIME [facility] Last Admin: 07/23/18 20:36 Dose: 20 mg Enoxaparin Sodium (Lovenox) 40 mg SUBCUT Q24H [facility] Last Admin: 07/23/18 15:47 Dose: 40 mg Lisinopril/HCTZ (Lisinopril/Hctz 20-12.5 Mg) 1 tab PO DAILY [facility] Last Admin: 07/24/18 08:45 Dose: 1 tab Nafcillin Sodium 2 gm/ Sodium (Chloride) 100 mls @ 100 mls/hr IV Q4H [facility] Last Admin: 07/24/18 05:33 Dose: 100 mls/hr Clindamycin/Sodium Chloride (Cleocin In Ns) 900 mg in 50 mls @ 100 mls/hr IV Q8H [facility] Last Admin: 07/24/18 04:07 Dose: 100 mls/hr Metformin HCl (Glucophage) 500 mg PO BIDMEALS [facility] Last Admin: 07/24/18 08:45 Dose: 500 mg Sodium Chloride (Saline Flush) 10 ml FLUSH ASDIRECTED PRN PRN Reason: Keep Vein Open Last Admin: 07/24/18 08:46 Dose: 10 ml Discontinued Medications Clindamycin Phosphate 900 mg/ (Sodium Chloride) 106 mls @ 100 mls/hr IV Q8H [facility] Last Admin: 07/22/18 00:35 Dose: Not Given Clindamycin/Sodium Chloride (Cleocin In Ns) 900 mg in 50 mls @ 100 mls/hr IV Q8H [facility] Last Admin: 07/23/18 11:59 Dose: 100 mls/hr - Exam General: Alert, Other Neck: Supple Extremities: Redness - Problem List & Annotations (1) Cellulitis SNOMED Code(s): 938956436 Code(s): L03.90 - CELLULITIS, UNSPECIFIED Status: Acute Current Visit: Yes Qualifiers: Site of cellulitis: extremity Site of cellulitis of extremity: lower extremity Laterality: left Qualified Code(s): L03.116 - Cellulitis of left lower limb - Problem List Review Problem List Initiated/Reviewed/Updated: Yes - Plan Plan:: may DC home today,on oral abx
--- NOTE | 2018-07-25 09:41 | DISCH ---
DISCHARGE DATE: 07/24/2018 REASON FOR ADMISSION: Cellulitis, left lower extremity. DISCHARGE DIAGNOSES: 1. Cellulitis of left lower extremity. 2. Venous stasis dermatitis. 3. Obesity. 4. Type 2 diabetes. BRIEF HISTORY AND HOSPITAL COURSE: A 57-year-old male who was admitted for cellulitis of the left lower extremity. Dr. Christy was consulted, did not feel there was any debridement needed. The patient has been taking nafcillin and clindamycin, and is ready to go home today. He is wearing an Isidoro wrap. He has no complaints. DISCHARGE MEDICATIONS: 1. Cephalexin 500 mg t.i.d. for 1 week. 2. Clindamycin 300 mg t.i.d. for 1 week. 3. He will continue his home medications of hydrochlorothiazide and metformin. FOLLOWUP: With Dr. Montero on Friday, July 27. I would like to thank Dr. Christy for his excellent care and consultation. Please note, I spent more than 35 minutes to discharge the patient. /[id number] JERRY/CRIS
== END 2018-07-24 14:15 | disposition home or self-care (01) | DRG 383 ==
LOC: FB.MS 12:14 → OBSVTOIN 07-22 12:14
PROVIDERS: ADMIT Family Medicine; ATTEND Family Medicine
DX: L03.116 Cellulitis of left lower limb (principal); I87.2 Venous insufficiency (chronic) (peripheral); E11.9 Type 2 diabetes mellitus without complications; Z79.84 Long term (current) use of oral hypoglycemic drugs; I10 Essential (primary) hypertension; F17.210 Nicotine dependence, cigarettes, uncomplicated; H53.002 Unspecified amblyopia, left eye; M19.90 Unspecified osteoarthritis, unspecified site; F81.9 Developmental disorder of scholastic skills, unspecified; E66.9 Obesity, unspecified; Z68.43 Body mass index [BMI] 50.0-59.9, adult; Z79.82 Long term (current) use of aspirin
CPT/HCPCS: 36415; 80053; 80061; 81001; 82962; 83036; 83880; 85025; 87040; 93971-LT; 96365; 96366; 96367; 96376; A9270-GY; G0378; J1650; J3490; J7030; S0032

== ENCOUNTER 2018-08-14 06:28 | Day surgery (SDC) | payer BC ==
[2018-08-14] MEDS ORDERED: Propofol 200 MG/20 ML SDV IV ONE (06:29)
[2018-08-14] MEDS ORDERED: Lidocaine 1% PF 2 ML SDV INJECT ONE (06:29)
[2018-08-14] MEDS ORDERED: Sodium Chloride 0.9% 10 ML Syringe FLUSH PRN (06:52)
[2018-08-14] MEDS ORDERED: Lactated Ringers 1,000 ML IV SCH (07:00)
--- NOTE | 2018-08-14 08:24 | PCM.OPNOTE ---
- General Post-Op/Procedure Note Date of Surgery/Procedure: 08/14/18 Operative Procedure(s): c scope Findings: sigmoid diverticulosis Pre Op Diagnosis: screening c scope Post-Op Diagnosis: sigmoid diverticulosis Anesthesia Technique: MAC Primary Surgeon: Ricardo Christy Anesthesia Provider: Nathaniel Rucker Complications: None Condition: Good Free Text/Narrative:: see dictation
--- NOTE | 2018-08-14 08:41 | OR ---
DATE OF OPERATION: 08/14/2018 SURGEON: Ricardo Christy MD PROCEDURE PERFORMED: Colonoscopy. PREOPERATIVE DIAGNOSIS: Need for screening C-scope. POSTOPERATIVE DIAGNOSIS: Sigmoid diverticulosis. INDICATIONS FOR PROCEDURE: This is a 57-year-old white male, referred for screening colonoscopy. He was offered and accepted same. DESCRIPTION OF OPERATION: After an excellent IV sedation was administered, digital rectal exam was performed. No marked abnormality was noted. Flexible colonoscope was inserted and advanced to the cecum. Prep was excellent. The following findings were noted. Ascending colon, unremarkable. Transverse colon, unremarkable. Descending colon, unremarkable. Sigmoid, scattered diverticulosis. Rectum and anus, unremarkable. Colon was deflated. Scope was removed. The patient tolerated the procedure well. He was taken to recovery. Repeat scope in 10 years. /[id number] /MODL
[2018-08-14 09:03] VITALS: BP 169/99
== END 2018-08-14 08:59 | disposition home or self-care (01) ==
LOC: FB.SDS 06:28
PROVIDERS: ATTEND Surgery
DX: Z12.11 Encounter for screening for malignant neoplasm of colon (principal); K57.30 Diverticulosis of large intestine without perforation or abscess without bleeding; E11.9 Type 2 diabetes mellitus without complications; E78.00 Pure hypercholesterolemia, unspecified; A60.00 Herpesviral infection of urogenital system, unspecified; F17.210 Nicotine dependence, cigarettes, uncomplicated; E66.01 Morbid (severe) obesity due to excess calories; Z68.43 Body mass index [BMI] 50.0-59.9, adult; Z79.4 Long term (current) use of insulin; Z79.84 Long term (current) use of oral hypoglycemic drugs; Z79.82 Long term (current) use of aspirin; Z79.891 Long term (current) use of opiate analgesic; Z79.899 Other long term (current) drug therapy
CPT/HCPCS: 82962; J2001; J2704; J7120

== ENCOUNTER 2025-01-17 13:16 | Inpatient (IN) | payer BC, MEDICARE ==
[2025-01-17 15:50] LABS: BASOPHILS ABSOLUTE AUTO 0.1 x10-3/uL (0.0-0.3); BASOPHILS PERCENT AUTO 1.3 % (0.3-3.8); EOSINOPHILS ABSOLUTE AUTO 0.1 x10-3/uL (0.0-0.6); EOSINOPHILS PERCENT AUTO 1.5 % (0.1-6.8); LYMPHOCYTES ABSOLUTE AUTO 1.2 x10-3/uL (0.5-4.5); LYMPHOCYTES PERCENT AUTO 16.3 % (15.8-45.3); MEAN PLATELET VOLUME 9.0 fL (6.7-11.0); MONOCYTES ABSOLUTE AUTO 0.6 x10-3/uL (0.0-1.2); MONOCYTES PERCENT AUTO 8.4 % (5.5-15.2); NEUTROPHILS ABSOLUTE AUTO 5.2 x10-3/uL (1.7-6.9); NEUTROPHILS PERCENT AUTO 72.5 % (40.3-71.8); PLATELET COUNT,PLT 149 x10(3)uL (117-477); RED BLOOD CELL COUNT 4.69 x10(6)uL (3.90-5.90); RED CELL DISTRIBUTION WIDTH 13.9 % (12.4-15.0); WHITE BLOOD CELL COUNT,WBC 7.2 x10-3/uL (3.2-10.1)
[2025-01-17 15:59] LABS: A/G RATIO 1.2; ALANINE AMINOTRANSFERASE,ALT 30 U/L (12-36); ASPARTATE AMNIOTRANSFERASE,AST 17 IU/L (5-25); BILIRUBIN TOTAL 0.6 mg/dL (0.1-1.3); BLOOD UREA NITROGEN,BUN 19 mg/dL (7-18); CARBON DIOXIDE,CO2 30 mmol/L (21-32); CHLORIDE,CL 106 mmol/L (100-110); CREATININE 0.7 mg/dL (0.70-1.30); EST CRCL DRUG DOSING (CG) 110.08 mL/min; ESTIMATED GFR 103 mL/min (>60); GLUCOSE RANDOM 193 mg/dL (80-116); POTASSIUM,K 4.1 mmol/L (3.5-5.3); PROTEIN TOTAL,TP 6.2 g/dL (6.0-8.0); SODIUM,NA 139 mmol/L (135-145)
[2025-01-17 16:06] LABS: PRO B-TYPE NATRIUR PEPT,BNPPRO 94.0 pg/mL (<=125)
[2025-01-17] MEDS ORDERED: 50% Dextrose in Water 50 ML Syringe IVPUSH PRN (17:16)
[2025-01-17] MEDS: Insulin Lispro 100 Unit/ML 3 ML KwikPen SUBCUT SCH (17:50)
[2025-01-17] MEDS: Furosemide 40 MG/4 ML VIAL IVPUSH SCH (18:53)
[2025-01-17] MEDS: Insulin Glargine,Human Rec. Analog 100 Units/ML 3 ML Pen SUBCUT SCH (20:34)
[2025-01-17] MEDS ORDERED: Non-Formulary Medication 1 Each (Insulin Degludec [Tresiba] 100 UNIT/ML Vial) SUBCUT SCH (21:00)
[2025-01-18 06:48] LABS: BASOPHILS ABSOLUTE AUTO 0.0 x10-3/uL (0.0-0.3); BASOPHILS PERCENT AUTO 0.7 % (0.3-3.8); EOSINOPHILS ABSOLUTE AUTO 0.2 x10-3/uL (0.0-0.6); EOSINOPHILS PERCENT AUTO 3.1 % (0.1-6.8); LYMPHOCYTES ABSOLUTE AUTO 1.2 x10-3/uL (0.5-4.5); LYMPHOCYTES PERCENT AUTO 19.2 % (15.8-45.3); MEAN PLATELET VOLUME 9.5 fL (6.7-11.0); MONOCYTES ABSOLUTE AUTO 0.8 x10-3/uL (0.0-1.2); MONOCYTES PERCENT AUTO 12.3 % (5.5-15.2); NEUTROPHILS ABSOLUTE AUTO 4.1 x10-3/uL (1.7-6.9); NEUTROPHILS PERCENT AUTO 64.7 % (40.3-71.8); PLATELET COUNT,PLT 150 x10(3)uL (117-477); RED BLOOD CELL COUNT 4.62 x10(6)uL (3.90-5.90); RED CELL DISTRIBUTION WIDTH 13.9 % (12.4-15.0); WHITE BLOOD CELL COUNT,WBC 6.3 x10-3/uL (3.2-10.1)
[2025-01-18 07:01] LABS: A/G RATIO 1.2; ALANINE AMINOTRANSFERASE,ALT 33 U/L (12-36); ASPARTATE AMNIOTRANSFERASE,AST 20 IU/L (5-25); BILIRUBIN TOTAL 0.7 mg/dL (0.1-1.3); BLOOD UREA NITROGEN,BUN 19 mg/dL (7-18); CARBON DIOXIDE,CO2 31 mmol/L (21-32); CHLORIDE,CL 105 mmol/L (100-110); CREATININE 0.7 mg/dL (0.70-1.30); EST CRCL DRUG DOSING (CG) 110.08 mL/min; ESTIMATED GFR 103 mL/min (>60); GLUCOSE RANDOM 129 mg/dL (80-116); POTASSIUM,K 3.8 mmol/L (3.5-5.3); PROTEIN TOTAL,TP 6.1 g/dL (6.0-8.0); SODIUM,NA 140 mmol/L (135-145)
[2025-01-18] MEDS ORDERED: Non-Formulary Medication 1 Each (Lisinopril/Hydrochlorothiazide [Lisinopril-Hctz 20-12.5 M PO SCH (09:00)
[2025-01-18] MEDS: Furosemide 40 MG/4 ML VIAL IVPUSH SCH (09:46)
[2025-01-18] MEDS: Sodium Chloride 0.9% 10 ML Syringe FLUSH PRN (09:53)
[2025-01-18] MEDS: Iopamidol 755 Mg/ML 100 ML Bottle IV SCH (11:27)
[2025-01-18] MEDS: VANCOmycin 2 GM/400 ML 2 GM in Premix Bag 1 BAG IV ONE (17:34)
[2025-01-18] MEDS: Insulin Glargine,Human Rec. Analog 100 Units/ML 3 ML Pen SUBCUT STA (21:10)
[2025-01-19 07:06] LABS: BASOPHILS ABSOLUTE AUTO 0.1 x10-3/uL (0.0-0.3); BASOPHILS PERCENT AUTO 1.3 % (0.3-3.8); EOSINOPHILS ABSOLUTE AUTO 0.2 x10-3/uL (0.0-0.6); EOSINOPHILS PERCENT AUTO 2.8 % (0.1-6.8); LYMPHOCYTES ABSOLUTE AUTO 1.1 x10-3/uL (0.5-4.5); LYMPHOCYTES PERCENT AUTO 17.9 % (15.8-45.3); MEAN PLATELET VOLUME 9.7 fL (6.7-11.0); MONOCYTES ABSOLUTE AUTO 0.8 x10-3/uL (0.0-1.2); MONOCYTES PERCENT AUTO 11.9 % (5.5-15.2); NEUTROPHILS ABSOLUTE AUTO 4.2 x10-3/uL (1.7-6.9); NEUTROPHILS PERCENT AUTO 66.1 % (40.3-71.8); PLATELET COUNT,PLT 158 x10(3)uL (117-477); RED BLOOD CELL COUNT 4.85 x10(6)uL (3.90-5.90); RED CELL DISTRIBUTION WIDTH 13.8 % (12.4-15.0); WHITE BLOOD CELL COUNT,WBC 6.4 x10-3/uL (3.2-10.1)
[2025-01-19 07:14] LABS: BLOOD UREA NITROGEN,BUN 28 mg/dL (7-18); CARBON DIOXIDE,CO2 31 mmol/L (21-32); CHLORIDE,CL 101 mmol/L (100-110); CREATININE 0.9 mg/dL (0.70-1.30); EST CRCL DRUG DOSING (CG) 85.62 mL/min; ESTIMATED GFR 95 mL/min (>60); GLUCOSE RANDOM 117 mg/dL (80-116); POTASSIUM,K 3.4 mmol/L (3.5-5.3); SODIUM,NA 141 mmol/L (135-145)
[2025-01-19] MEDS ORDERED: VANCOmycin 1.5 GM/300 ML 1.5 GM in Premix Bag 1 BAG IV SCH (08:00)
[2025-01-19] MEDS: Potassium Chloride 20 MEQ Tab.ER PO ONE (10:09)
[2025-01-19] MEDS: VANCOmycin 1.25 GM/250 ML 1.25 GM in Premix Bag 1 BAG IV SCH (10:11)
[2025-01-19] MEDS: Insulin Glargine,Human Rec. Analog 100 Units/ML 3 ML Pen SUBCUT SCH (10:28)
[2025-01-19 16:38] VITALS: BP 115/71; PULSE 77
== END 2025-01-19 17:40 | DRG 292 ==
LOC: FB.MS 13:16
PROVIDERS: ADMIT Internal Medicine; ATTEND Internal Medicine
DX: I50.33 Acute on chronic diastolic (congestive) heart failure (principal); Z68.42 Body mass index [BMI] 45.0-49.9, adult; N49.2 Inflammatory disorders of scrotum; E66.9 Obesity, unspecified; E78.00 Pure hypercholesterolemia, unspecified; E11.9 Type 2 diabetes mellitus without complications; N40.0 Benign prostatic hyperplasia without lower urinary tract symptoms; M19.90 Unspecified osteoarthritis, unspecified site; I48.0 Paroxysmal atrial fibrillation; Z79.82 Long term (current) use of aspirin; Z79.84 Long term (current) use of oral hypoglycemic drugs; Z79.4 Long term (current) use of insulin; Z79.01 Long term (current) use of anticoagulants; Z86.73 Personal history of transient ischemic attack (TIA), and cerebral infarction without residual deficits; Z98.890 Other specified postprocedural states; Z87.891 Personal history of nicotine dependence
CPT/HCPCS: 36415; 72193; 72193-26; 80048; 80053; 80202; 82947; 83735; 83880; 84484; 85025; 86140; 87040; 93306; 94150; 97165-GO; 99222; 99232; 99238; A9270-GY; J0696; J1815-GY; J1938; J3375; Q9967